=== PATIENT | male | born 1980 | race Caucasian/White ===

== ENCOUNTER 2016-10-31 09:20 | Emergency (ER) | payer MEDICARE, OTHER | END 2016-10-31 10:35 | disposition home or self-care (01) | LOC: ER1 09:20 | DX: S81.802A Unspecified open wound, left lower leg, initial encounter (principal); L08.9 Local infection of the skin and subcutaneous tissue, unspecified; W29.4XXA Contact with nail gun, initial encounter; Z23 Encounter for immunization; G40.909 Epilepsy, unspecified, not intractable, without status epilepticus; Z79.899 Other long term (current) drug therapy; M51.9 Unspecified thoracic, thoracolumbar and lumbosacral intervertebral disc disorder; M79.605 Pain in left leg | CPT/HCPCS: 73590; 90471; 90715; 99283 ==

== ENCOUNTER → 2016-10-31 | Outpatient (CLI) | payer MEDICARE, OTHER | LOC: RAD 11:02 | DX: M51.9 Unspecified thoracic, thoracolumbar and lumbosacral intervertebral disc disorder (principal); M79.605 Pain in left leg | CPT/HCPCS: 72050; 72072; 72110; 73590; 90471; 90715; 99283 ==

== ENCOUNTER 2016-11-06 20:34 | Emergency (ER) | payer MEDICARE, OTHER | END 2016-11-06 23:25 | LOC: ER1 20:34 | DX: S05.91XA Unspecified injury of right eye and orbit, initial encounter (principal); H10.9 Unspecified conjunctivitis; I10 Essential (primary) hypertension; W22.8XXA Striking against or struck by other objects, initial encounter; Z23 Encounter for immunization | CPT/HCPCS: 90471; 90715; 96372; 99284; J0696 ==

== ENCOUNTER → 2016-11-20 | Outpatient (CLI) | payer MEDICARE, OTHER | LOC: KOH-I 08:56 | DX: M79.605 Pain in left leg (principal); S81.832D Puncture wound without foreign body, left lower leg, subsequent encounter; F39 Unspecified mood [affective] disorder; F43.10 Post-traumatic stress disorder, unspecified; G40.909 Epilepsy, unspecified, not intractable, without status epilepticus; Z91.19 Patient's noncompliance with other medical treatment and regimen; J30.9 Allergic rhinitis, unspecified | CPT/HCPCS: 73590 ==

== ENCOUNTER 2017-02-10 13:08 | Emergency (ER) | payer MEDICARE, OTHER ==
[2017-02-10 14:56] LABS: HEMOGLOBIN 13.1 gm/dl (14.0-17.5); RED BLOOD COUNT 4.56 M/UL (4.20-5.50); WHITE BLOOD COUNT 13.8 K/UL (4.5-11.0)
[2017-02-10 15:22] LABS: BUN/CREATININE RATIO 8 (0-10)
== END 2017-02-10 16:37 | disposition home or self-care (01) ==
LOC: ER1 13:08
PROVIDERS: Physician Assistant Medical
DX: F41.9 Anxiety disorder, unspecified (principal); Z88.2 Allergy status to sulfonamides; Z79.899 Other long term (current) drug therapy
CPT/HCPCS: 36415; 71010; 80053; 81001; 84443; 85025; 93005; 99284